=== PATIENT | male | born 1930 | race Caucasian/White ===

== ENCOUNTER 2017-01-07 11:44 | Inpatient (IN) | payer MEDICARE, MEDICAID ==
[~2017-01-07] VITALS: Ht 175.3 cm; Wt 106.3 kg
[2017-01-07 12:11] VITALS: BP 163/71
[2017-01-07 12:14] LABS: BASO # 0.1 10*3/uL (0.0-0.1); BASO % 0.5 % (0.0-1.0); EOS # 0.4 10*3/uL (0.0-0.4); EOS % 3.6 % (1.0-4.0); HEMATOCRIT 35.5 % (42.0-52.0); HEMOGLOBIN 10.8 g/dl (14.0-18.0); LYMPH # 1.5 10*3/uL (1.3-4.4); LYMPH % 15.3 % (27.0-41.0); MEAN CELL VOLUME 87.7 fl (80.0-94.0); MEAN CORPUSCULAR HGB 26.7 pg (27.0-31.0); MEAN CORPUSCULAR HGB CONC 30.4 g/dl (33.0-37.0); MEAN PLATELET VOLUME 9.2 fl (9.6-12.3); MONO # 1.2 10*3/uL (0.1-1.0); MONO % 11.7 % (3.0-9.0); NEUT # 6.7 10*3/uL (2.3-7.9); NEUT % 68.5 % (47.0-73.0); PLATELET COUNT AUTOMATED 290 10*3/uL (130-400); RED BLOOD COUNT 4.05 10*6/uL (4.50-5.90); RED CELL DISTRI WIDTH 15.2 % (0-14.5); WHITE BLOOD COUNT 9.8 10*3/uL (4.8-10.8)
[2017-01-07 12:24] LABS: ACT PARTIAL THROMBO TIME 27.9 SECONDS (20.8-31.5)
[2017-01-07 12:30] LABS: ALBUMIN 2.6 gm/dl (3.1-4.5); ALKALINE PHOSPHATASE 109 U/L (45-117); BUN 17 mg/dl (7-24); CHLORIDE 105 mmol/L (98-107); CREATININE 1.29 mg/dL (0.70-1.30); LIPASE 140 U/L (73-393); POTASSIUM 4.5 mmol/L (3.5-5.1); SGOT/AST 11 IU/L (3-35); SGPT/ALT 12 U/L (12-78); SODIUM 140 mmol/L (136-145); TOTAL PROTEIN 7.5 gm/dL (6.4-8.2); TROPONIN I < 0.015 ng/ml (<0.045)
[2017-01-07] MEDS ORDERED: FLOMAX0.4 MG PO (14:06)
[2017-01-07] MEDS ORDERED: IRON325 M3 PO (14:08)
[2017-01-07] MEDS ORDERED: LISINOPRIL20 MG PO (14:09)
[2017-01-07] MEDS ORDERED: OCUVITE EYE +1 EACH PO (14:09)
[2017-01-07] MEDS ORDERED: VITAMIN C500 M4 PO (14:10)
[2017-01-07] MEDS ORDERED: PRILOSEC20 M1 PO (14:10)
[2017-01-07] MEDS ORDERED: ZOLOFT25 MG PO (14:12)
[2017-01-07] MEDS ORDERED: SYMB80 INH (14:12)
[2017-01-07 14:20] VITALS: BP 136/75
[2017-01-07 15:05] VITALS: BP 150/99
--- NOTE | 2017-01-07 15:05 | NUR ---
Time: 1504 A 86 year old MALE admitted to under services of PARUL MEIER DO. Pt. arrived via stretcher from ER. Chief complaint: ABDOMINAL PAIN. C/O PAIN TO LEFT ABDOMEN WHEN ROLLING TO THE LEFT AND RT. ABDOMINAL PAIN WHEN ROLLING TO THE RIGHT. ABDOMEN IS ROTOUND AND TYMpanic on arrival. pt. incontinent of urine w/ saturated brief on arrival to unit. meaghan care was given,, urinal was used , UA-UC was obtained and sent, dry brief was applied. spouse was present. SU MARTIN
[2017-01-07 15:45] LABS: BILIRUBIN NEGATIVE (NEGATIVE); BLOOD NEGATIVE (NEGATIVE); CLARITY CLEAR (CLEAR); COLOR YELLOW (YELLOW); GLUCOSE NEGATIVE (NEGATIVE); KETONE NEGATIVE (NEGATIVE); LEUKO ESTERASE TRACE (NEGATIVE); NITRITE NEGATIVE (NEGATIVE); PH 5.5 (5.0-9.0); UROBILINOGEN 0.2 E.U./dl (0.2-1.0)
[2017-01-07] MEDS ORDERED: MOM30 M1 PO (15:57)
[2017-01-07] MEDS ORDERED: DULCOLAX10 M1 R (15:57)
[2017-01-07 15:58] LABS: MUCOUS TRACE
[2017-01-07 18:38] VITALS: BP 140/62
--- NOTE | 2017-01-07 21:57 | NUR ---
PATIENT WITH ABDOMEN DISTENDED AND FIRM. PATIENT HAS GRUNTING RESPIRATIONS, NO PEDAL EDEMA. PATIENT WITH CONFUSION NOTED.
[2017-01-08] VITALS: BP 137/71
--- NOTE | 2017-01-08 03:01 | NUR ---
PATIENT RESTING IN BED WITH NO S/S OF DISTRESS. BED IN LOWEST POSITION, BED ALARM ON, CALL CHARLA WILKINSON
[2017-01-08 07:31] LABS: BASO # 0.1 10*3/uL (0.0-0.1); BASO % 0.6 % (0.0-1.0); EOS # 0.3 10*3/uL (0.0-0.4); EOS % 3.2 % (1.0-4.0); HEMATOCRIT 34.5 % (42.0-52.0); HEMOGLOBIN 10.5 g/dl (14.0-18.0); LYMPH % 10.5 % (27.0-41.0); MEAN CELL VOLUME 85.8 fl (80.0-94.0); MEAN CORPUSCULAR HGB 26.1 pg (27.0-31.0); MEAN CORPUSCULAR HGB CONC 30.4 g/dl (33.0-37.0); MONO % 9.7 % (3.0-9.0); NEUT # 7.5 10*3/uL (2.3-7.9); NEUT % 75.6 % (47.0-73.0); PLATELET COUNT AUTOMATED 266 10*3/uL (130-400); RED BLOOD COUNT 4.02 10*6/uL (4.50-5.90); RED CELL DISTRI WIDTH 15.1 % (0-14.5); WHITE BLOOD COUNT 9.9 10*3/uL (4.8-10.8)
[2017-01-08 07:42] LABS: ALBUMIN 2.5 gm/dl (3.1-4.5); ALKALINE PHOSPHATASE 104 U/L (45-117); BUN 13 mg/dl (7-24); CHLORIDE 106 mmol/L (98-107); CHOLESTEROL 180 mg/dL (<200); HDL CHOLESTEROL 37 mg/dl (40-60); LDL CHOLESTEROL 120 mg/dL (9-159); PHOSPHOROUS 2.9 mg/dL (2.5-4.9); POTASSIUM 4.5 mmol/L (3.5-5.1); SGOT/AST 11 IU/L (3-35); SGPT/ALT 14 U/L (12-78); SODIUM 140 mmol/L (136-145); TOTAL PROTEIN 7.1 gm/dL (6.4-8.2); TRIGLYCERIDES 117 mg/dl (<150); VLDL CHOLESTEROL 23 mg/dL (6-40)
[2017-01-08 08:00] VITALS: BP 153/74
--- NOTE | 2017-01-08 08:00 | NUR ---
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 STATES HE LIVES [place] [facility]ONES AND PLANS TO RETURN ON DC.
--- NOTE | 2017-01-08 08:06 | NUR ---
Patient is LTC from [facility] and can return when medically stable for discharge.
[2017-01-08 08:25] LABS: VITAMIN D, 25-HYDROXY 9.1 ng/mL (30-100)
--- NOTE | 2017-01-08 11:13 | NUR ---
DR KENNY MADE AWARE OF CONSULT ORDER. WILL COME SEE PATIENT TODAY.
[2017-01-08 12:00] VITALS: BP 155/76
[2017-01-08 16:00] VITALS: BP 143/68
[2017-01-08 20:00] VITALS: BP 153/66
--- NOTE | 2017-01-08 20:00 | NUR ---
PT RESTING IN BED WITH NO COMPLAINTS. STOMACH IS ROUND AND DISTENDED. PT DENIES ANY DISCOMFORT AT THIS TIME.
[2017-01-09] VITALS: BP 141/73
--- NOTE | 2017-01-09 06:02 | NUR ---
PT LAYING FLAT AT THIS TIME, STATES PAIN LESSENS IN THIS POSITION. BREATHING EASY AND REGULAR.
[2017-01-09 08:00] VITALS: BP 153/73
--- NOTE | 2017-01-09 08:00 | NUR ---
ASSUMED CARE OF PATIENT AT THIS TIME. PATIENT IS AWAKE AND ALERT SITTING UP IN BED. IS IN VISITING.
[2017-01-09 12:00] VITALS: BP 139/65
--- NOTE | 2017-01-09 12:30 | NUR ---
PT IS BEGINNING THE PREP FOR COLONOSCOPY SCHEDULED FOR TOMORROW. MAGNESIUM CITRATE AT BEDSIDE.
--- NOTE | 2017-01-09 13:10 | NUR ---
PT IS BEGINNING TO HAVE BOWEL MOVEMENTS ASSOCIATED WITH THE MAG CITRATE. PATIENT'S SCROTUM IS VERY RED AND EXCORIATED. PATIENT C/O FEELING A BURNING SENSATION ON THE SCROTUM.
--- NOTE | 2017-01-09 14:30 | NUR ---
CALLED DOCTOR AND REQUESTED A CREAM TO HELP EASE THE BURNING AND PAIN ASSOCIATED WITH THE IRRITATION OF THE SCROTUM. DR FISCHER SAYS HE WILL PUT ORDERS IN.
[2017-01-09 16:00] VITALS: BP 112/70; BP 142/76
[2017-01-09 20:00] VITALS: BP 143/65
--- NOTE | 2017-01-09 20:00 | NUR ---
RESTING IN BED; AWAKE & ALERT. CONFUSED; DISORIENTED TO PLACE BUT NOT TO TIME. HEP LOCK INTACT TO RIGHT ANTECUBITAL; SITE ASYMPTOMATIC. PT. VOICES NO C/O AT THIS TIME. CALL LIGHT WITHIN REACH. BED ALARM ON.
[2017-01-10] VITALS: BP 118/72
[2017-01-10 05:58] LABS: BASO # 0.1 10*3/uL (0.0-0.1); BASO % 0.6 % (0.0-1.0); EOS # 0.4 10*3/uL (0.0-0.4); EOS % 5.1 % (1.0-4.0); HEMOGLOBIN 10.4 g/dl (14.0-18.0); LYMPH % 12.4 % (27.0-41.0); MEAN CELL VOLUME 87.6 fl (80.0-94.0); MEAN CORPUSCULAR HGB 26.8 pg (27.0-31.0); MEAN CORPUSCULAR HGB CONC 30.6 g/dl (33.0-37.0); MONO # 0.9 10*3/uL (0.1-1.0); NEUT # 5.5 10*3/uL (2.3-7.9); NEUT % 69.5 % (47.0-73.0); PLATELET COUNT AUTOMATED 260 10*3/uL (130-400); RED BLOOD COUNT 3.88 10*6/uL (4.50-5.90); WHITE BLOOD COUNT 7.9 10*3/uL (4.8-10.8)
--- NOTE | 2017-01-10 06:00 | NUR ---
KATTY CARE PROVIDED MULTIPLE TIMES THROUGHOUT SHIFT. SCROTOM EXCORIATED; CREAM APPLIED. PT. PLEASANT & COOPERATIVE WITH CARE.
[2017-01-10 06:18] LABS: BUN 9 mg/dl (7-24); CHLORIDE 109 mmol/L (98-107); CREATININE 1.34 mg/dL (0.70-1.30); POTASSIUM 3.8 mmol/L (3.5-5.1); SODIUM 144 mmol/L (136-145)
[2017-01-10 07:20] VITALS: BP 154/74
[2017-01-10 09:04] VITALS: BP 107/59
[2017-01-10 09:15] VITALS: BP 99/63
[2017-01-10 09:34] VITALS: BP 126/66
[2017-01-10] MEDS ORDERED: COLACE 2-IN-11 EACH PO (10:50)
[2017-01-10] MEDS ORDERED: Nystatin Cream15 GM T (10:50)
[2017-01-10] MEDS ORDERED: VITAMIN D22000 UNIT PO (10:50)
[2017-01-10] MEDS ORDERED: PERCOCET 7.5-31 EACH PO (10:52)
[2017-01-10 12:00] VITALS: BP 150/72
--- NOTE | 2017-01-10 13:25 | NUR ---
Discharge instructions reviewed with patient/family. Patient receptive and verbalizes understanding. Follow-up care arranged. Written instructions given to patient/family. PT TAKEN OUT BY [facility]. PT WAS IN STABLE CONDITION. NURY GORDON
--- NOTE | 2017-01-10 13:36 | NUR ---
CALLED REPORT TO ENRIQUE AT THE [facility]. NIESHA IS TO RETURN TO [facility].
== END 2017-01-10 13:25 | disposition other institution (70) | DRG 391 ==
LOC: ED 11:44 → EDHOLD 14:00 → 4E 14:00
PROVIDERS: Emergency Medicine; Family Medicine; Internal Medicine Nephrology; ADMIT Internal Medicine
PROC: 0DBL8ZX Excision of Transverse Colon, Via Natural or Artificial Opening Endoscopic, Diagnostic (ICD-10-PCS; principal; 2017-01-10)
PROC: 0DBE8ZX Excision of Large Intestine, Via Natural or Artificial Opening Endoscopic, Diagnostic (ICD-10-PCS; principal; 2017-01-10)
DX: K57.32 Diverticulitis of large intestine without perforation or abscess without bleeding (principal); E43 Unspecified severe protein-calorie malnutrition; I31.3 Pericardial effusion (noninflammatory); D64.9 Anemia, unspecified; D49.0 Neoplasm of unspecified behavior of digestive system; E55.9 Vitamin D deficiency, unspecified; F03.90 Unspecified dementia, unspecified severity, without behavioral disturbance, psychotic disturbance, mood disturbance, and anxiety; E66.9 Obesity, unspecified; I11.9 Hypertensive heart disease without heart failure; F41.9 Anxiety disorder, unspecified; N40.0 Benign prostatic hyperplasia without lower urinary tract symptoms; F32.9 Major depressive disorder, single episode, unspecified; K76.89 Other specified diseases of liver; K64.8 Other hemorrhoids; Z79.899 Other long term (current) drug therapy; Z90.49 Acquired absence of other specified parts of digestive tract; Z86.73 Personal history of transient ischemic attack (TIA), and cerebral infarction without residual deficits; Z82.49 Family history of ischemic heart disease and other diseases of the circulatory system; Z81.8 Family history of other mental and behavioral disorders